=== PATIENT | female | born 2005 | race Caucasian/White ===

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

== ENCOUNTER → 2024-05-12 07:19 | Outpatient (BNVA) | payer OTHER, SELFPAY | PROVIDERS: PCP Family Medicine | DX: N39.0 Urinary tract infection, site not specified (principal) | CPT/HCPCS: 81000 ==